=== PATIENT | male | born 1980 | race Two or more races ===

== ENCOUNTER 2020-12-24 22:13 | Emergency (ER) | payer SELFPAY ==
[~2020-12-24] VITALS: Ht 172.7 cm; Wt 181.4 kg
[2020-12-24 22:18] VITALS: BP 124/78
== END 2020-12-24 23:27 | disposition home or self-care (01) ==
LOC: ER 22:13
DX: Z48.00 Encounter for change or removal of nonsurgical wound dressing (principal)
CPT/HCPCS: 87077; 87186; 87205